=== PATIENT | male | born 2000 | race African-American/Black ===

== ENCOUNTER 2019-02-21 06:36 | Emergency (ER) | payer MEDICAID ==
[2019-02-21] MEDS: ACETAMINOPHEN 500 MG TAB PO (07:03)
[2019-02-21] MEDS: IBUPROFEN 800 MG TAB PO (07:03)
[2019-02-21 08:03] LABS: MONOTEST Positive (NEG)
== END 2019-02-21 08:47 | disposition home or self-care (01) ==
LOC: FTE 08:47
DX: B27.90 Infectious mononucleosis, unspecified without complication (principal)
CPT/HCPCS: 86308; 87880; 99283